=== PATIENT | male | born 1950 | race Caucasian/White ===

== ENCOUNTER → 2018-02-13 | Outpatient (CLI) | payer MEDICARE | END | disposition home or self-care (01) | LOC: PCVCCLINIC 10:54 | PROVIDERS: ATTEND Internal Medicine Cardiovascular Disease | DX: I10 Essential (primary) hypertension (principal); E78.00 Pure hypercholesterolemia, unspecified; R06.09 Other forms of dyspnea; E78.5 Hyperlipidemia, unspecified; Z79.82 Long term (current) use of aspirin; Z82.49 Family history of ischemic heart disease and other diseases of the circulatory system | CPT/HCPCS: 36415; 80061; 93005; G0463 ==

== ENCOUNTER → 2018-03-06 | Outpatient (CLI) | payer MEDICARE ==
--- NOTE | 2018-03-06 17:18 | PCVCIMAG ---
APPROVED REPORT Study performed: 03/06/2018 15:00:52 Exam: Stress Echocardiogram Indication: Hyperlipidemia, Hypertension, Family history of CAD Patient Location: Echo lab Stress Nurse: Sabiha Arora RN Status: routine Ht: 5 ft 7 in HR: 77 bpm BP: 110/70 mmHg Rhythm: NSR Procedure The patient underwent an Exercise Stress Test using the Alonso Protocol. Blood pressure, heart rate, and EKG were monitored. An Echocardiogram was performed by camera technician in four stages in quad fashion. At peak stress, four selected images were obtained and placed side by side with resting images for comparison. Stress Test Details Stress Test: Exercise stress testing was performed using a Alonso protocol. HR Resting HR: 77 bpmMax Heart Rate (APMHR): 153 bpm Max HR Achieved: 166 bpmTarget HR (85% APMHR): 130 bpm % of APMHR: 108 Recovery HR: 94 bpm HR response to stress: Normal HR response to stress BP Resting BP: 110/70 mmHg Max BP: 186/82 mmHg Recovery BP: 158/82 mmHg BP response to stress: Normal blood pressure response to stress. ECG Resting ECG: Sinus rhythm, Incomplete left bundle branch block Stress ECG: Sinus rhythm, Incomplete left bundle branch block Arrhythmia: VPC's Recovery ECG: Sinus Rhythm, LBBB Clinical Reason for Termination: Maximal effort Exercise duration: 10 min sec Highest Stage Achieved: Stage 4: 4.2 mph at 16% grade. Exercise capacity: 13.40 METs Overall Exercise Capacity for Age: Normal Pre-Stress Echo The resting Echocardiogram showed normal left ventricular contractility with an estimated Ejection Fraction of about 55-60%. Normal wall motion in all segments on baseline images. Post-Stress Echo The stress Echocardiogram showed normal left ventricular contractility with an estimated Ejection Fraction of about 60-65%. Normal augmentation of wall motion in all segments on post stress images. Clinical No clinical or ECG evidence for ischemia. Conclusion Clinical Response: Non-ischemic Exercise Capacity: Average Stress ECG Response: Indeterminant Stress Echo Images: Non-ischemic The left ventricle is normal in size and wall thickness in both the rest and stress images. Other Information Study Quality: Good <Conclusion> The left ventricle is normal in size and wall thickness in both the rest and stress images.
== END | disposition home or self-care (01) ==
LOC: PCVCIMAG 15:21
PROVIDERS: ATTEND Internal Medicine Cardiovascular Disease
DX: I10 Essential (primary) hypertension (principal); E78.00 Pure hypercholesterolemia, unspecified; R06.09 Other forms of dyspnea; R73.9 Hyperglycemia, unspecified; D50.8 Other iron deficiency anemias; E78.5 Hyperlipidemia, unspecified; Z82.49 Family history of ischemic heart disease and other diseases of the circulatory system
CPT/HCPCS: 93325; 93351